=== PATIENT | male | born 1985 | race Caucasian/White ===

== ENCOUNTER 2021-10-29 19:29 | Observation (INO) ==
[2021-10-29 19:59] LABS: Basophils # 0.1 K/mcL (0.0-0.2); Basophils % 0.7 %; Eosinophils # 0.3 K/mcL (0.0-0.6); Eosinophils % 2.8 %; Hematocrit 44.1 % (37.5-50.1); Hemoglobin 15.6 g/dL (12.9-16.9); Immature Granulocytes % 0.2 % (0-4); Lymphocytes # 3.6 K/mcL (0.6-4.6); Lymphocytes % 37.2 %; Mean Corpuscular HGB Conc 35.4 g/dL (31.6-35.5); Mean Corpuscular Hemoglobin 30.5 pg (28.0-33.3); Mean Corpuscular Volume 86.3 fL (83.0-100.0); Mean Platelet Volume 9.6 fL (9.4-12.4); Monocytes % 10.2 %; Neutrophils # 4.8 K/mcL (1.6-8.9); Platelet Count 199 K/mcL (140-400); Red Blood Count 5.11 M/mcL (4.19-5.50); Red Cell Distribution Width 11.8 % (11.5-14.5); Segmented Neutrophils % 48.9 %; White Blood Count 9.8 K/mcL (4.3-11.1)
[2021-10-29 20:20] LABS: BUN/Creatinine Ratio 16 (6-26); Blood Urea Nitrogen 19 mg/dL (6-20); Carbon Dioxide 28 mEq/L (23-29); Chloride 105 mEq/L (98-107); Glucose 101 mg/dL (70-105); Magnesium 2.3 mg/dL (1.6-2.6); Osmolality,Calculated 288 (280-300); Potassium 4.2 mEq/L (3.5-5.1); Sodium 138 mEq/L (136-145); Troponin I < 0.03 ng/mL (< 0.04)
[2021-10-29 20:33] LABS: Thyroid Stimulating Hormone 3.586 mcIU/mL (0.340-5.600)
[2021-10-29] MEDS ORDERED: Iopamidol - 370 500 ML MLS IVP ONE (22:49)
[2021-10-29 23:42] LABS: VBG HCO3 26 mEq/L (21-27); VBG PCO2 49 mmHg (41-51); VBG PH 7.34 pH Units (7.32-7.42); VBG PO2 47 mmHg (25-50)
[2021-10-30 00:07] LABS: Ethanol < 10 mg/dL (Less than 10)
[2021-10-30 00:16] LABS: Troponin I < 0.03 ng/mL (< 0.04)
[2021-10-30 00:26] LABS: Bilirubin,Urine Negative (Negative); Blood,Urine Negative (Negative); Clarity,Urine Clear (Clear); Color,Urine Light-Yellow (Yellow); Glucose,Urine (UA) Normal (Normal); Ketones,Urine Negative (Negative); Leukocyte Esterase,Urine Negative (Negative); Nitrite,Urine Negative (Negative); PH,Urine 5.5 pH Units (5.0-8.0); Protein,Urine Trace mg/dL (Neg-Trace); Specific Gravity,Urine 1.029 (1.010-1.025); Urobilinogen,Urine Normal (Normal)
[2021-10-30 00:29] LABS: Thyroid Stimulating Hormone 5.548 mcIU/mL (0.340-5.600)
[2021-10-30 00:42] LABS: Amphetamine Screen,Urine Positive ng/mL (Cutoff=1000); Barbiturate Screen,Urine Negative ng/mL (Cutoff=200); Benzodiazepines Screen,Urine Negative ng/mL (Cutoff=200); Cannabinoid Screen,Urine Negative ng/mL (Cutoff = 50); Cocaine Screen,Urine Negative ng/mL (Cutoff= 300); Opiate Screen,Urine Negative ng/mL (Cutoff=300); Phencyclidine Screen,Urine Negative ng/mL (Cutoff=25)
[2021-10-30] MEDS ORDERED: Melatonin 3 MG TABLET PO PRN (03:15)
[2021-10-30] MEDS ORDERED: Ondansetron ODT 4 MG TAB.RAPDIS SL PRN (03:15)
[2021-10-30] MEDS ORDERED: Naloxone 0.4 MG/ML INJ IVP PRN (03:15)
[2021-10-30] MEDS ORDERED: Aspirin 325 MG TABLET PO ONE (03:21)
[2021-10-30] MEDS ORDERED: Nitroglycerin 0.4 MG TAB.SUBL SL PRN (05:31)
[2021-10-30 11:33] VITALS: BP 129/83; PULSE 61; TEMP 97.4; O2SAT 96
== END 2021-10-30 15:15 | disposition home or self-care (01) ==
LOC: 3BNU 19:29 → EMEROOARM 19:29 → 3BNU 10-30 10:27
PROVIDERS: ADMIT General Practice; ATTEND General Practice